=== PATIENT | female | born 1950 | race Caucasian/White ===

== ENCOUNTER → 2018-09-17 13:15 | Outpatient (CLI) | payer MEDICARE, OTHER, SELFPAY ==
[2018-09-17 15:23] LABS: Clostridium Difficile Tox PCR Negative for C. diff
== END ==
PROVIDERS: Visit Provider Physician Assistant
DX: R19.7 Diarrhea, unspecified (principal)
CPT/HCPCS: 87045; 87046; 87493; 87899